=== PATIENT | male | born 1980 | race Two or more races ===

== ENCOUNTER 2024-08-15 09:09 | Emergency (ER) | payer MEDICARE, MEDICAID, SELFPAY ==
[2024-08-15] VITALS (7 sets, daily range): BP systolic 93–137; BP diastolic 62–85; PULSE 83–135; RESP 12–17; TEMP 36.9–37; O2SAT 97–99; BMI 22.1
--- NOTE | 2024-08-15 09:42 | EKG_ITS ---
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
--- NOTE | 2024-08-15 09:42 | PD.EDRME ---
Rapid Medical Screening Exam RME Arrival date/time: 08/15/24 09:09 43-year-old male with a history of A-fib, type 1 diabetes, presents to the emergency room with a chief complaint of palpitations x 1 day. Patient states he has a history of A-fib but does not take any blood thinners as he is trying to treat it naturally. I have greeted and performed a focused initial assessment of this patient. A comprehensive ED assessment and evaluation of the patient, analysis of all test results, and completion of the medical decision making process will be conducted by additional ED providers. Chief Complaint: Arrhythmia/Palpitations Vital signs reviewed by provider: Yes
[2024-08-15] MEDS: DILTIAZEM 30 MG TABLET 60 MG PO (10:17)
--- NOTE | 2024-08-15 10:37 | EDNOTE_ITS ---
ED Arrhythmia Palp. RME/HPI General Chief Complaint: Arrhythmia/Palpitations Stated Complaint: Heart palpitations Time Seen by Provider: 08/15/24 10:07 Arrival date/time: 08/15/24 09:09 RME / HPI RME / HPI narrative: 08/15/24 09:09 43-year-old male with a history of A-fib, type 1 diabetes, presents to the emergency room with a chief complaint of palpitations x 1 day. Patient states he has a history of A-fib but does not take any blood thinners as he is trying to treat it naturally. I have greeted and performed a focused initial assessment of this patient. A comprehensive ED assessment and evaluation of the patient, analysis of all test results, and completion of the medical decision making process will be conducted by additional ED providers. DR. MACEDO MAIN ED EVALUATION: 43 year old male with past medical history significant for diabetes, dyslipidemia, hypertension and paroxysmal atrial fibrillation presents to the Emergency Department with complaint of palpitations today. Symptoms are moderat e. Patient denies any blood thinners, states he wants to treat atrial fibrillation naturally. No other symptoms reported at this time. Related Data Previous Rx's ?Medication ?Instructions ?Recorded apixaban 5 mg tablet (Eliquis) 5 mg PO BID #60 tabs blood sugar diagnostic (Blood #100 ea 08/22/19 Glucose Test strips) blood-glucose meter (Blood Glucose #1 ea 08/22/19 Monitoring kit) diltiazem HCl 120 mg 120 mg PO QDAY #30 caps 08/12 0 capsule,extended release 24 hr insulin degludec 100 unit/mL (3 10 unit (0.1 mL) subcu t QDAY #15 mL 08/22/19 mL) subcutaneous pen lancets 30 gauge (BD Ultra-Fine II #100 ea 08/22/19 Lancets) metformin 1,000 mg 24 hr 1,000 mg PO QPM #30 tabs 03/02 tablet,extended release (gastric reten.) pen needle, diabetic 29 gauge x #30 ea 08/22/19 1/2 (Lite Touch Insulin Pen [place]) Allergies Allergy/AdvReac Type Severity Reaction Status Date / Time No Known Allergies Allergy Verified 08/15/24 09:12 Review of Systems Review of Systems Systems Reviewed: All systems reviewed, normal except as documented Past Medical History Past Medical History CARDIAC: Positive Cardiac Disorders, Cardiac Arrhythmia, Atrial Fibrillation, Hypercholesterolemia and Hypertension RESPIRATORY: Positive Bronchitis ENDOCRINE: Positive Endocrine Disorders and Diabetes Mellitus Type 2 Family History FAMILY HISTORY: Positive Family Cancer Social History SMOKING STATUS: Never smoker SECOND HAND EXPOSURE: No SUBSTANCE USE: does not use ALCOHOL: Never ED Exam Narrative Physical exam: GENERAL APPEARANCE: AxOx4, generally well-appearing, no acute distress. HEENT: NC, AT. MMM. EOMI, clear conjunctiva, oropharynx clear. NECK: Supple without lymphadenopathy. No stiffness or restricted ROM. HEART: Normal rate and regular rhythm, normal S1/S1, no m/r/g LUNGS: CTAB, moving air well. No crackles or wheezes are heard. ABDOMEN: Soft, nontender, nondistended with good bowel sounds heard. BACK: No midline C/T/L spine pain or deformity, No CVAT, no obvious deformity. EXTREMITIES: Without cyanosis, clubbing or edema. MUSCULOSKELETAL: FROM of all major joints, no chest tenderness NEUROLOGICAL: Grossly nonfocal. Alert and oriented, moving all 4 extremities. CN not formally tested but appear grossly intact. Observed to ambulate with normal gait. Skin: Warm and dry without any rash. Course Quality Measures none Orders Category Date Time Status EKG (ED ONLY) *Do not use* NOW Care 08/15/24 09:42 Completed EKG (ED Only) Stat Exams 08/15/24 09:42 Draft CMP [Comprehensive Metabolic Panel] Stat Lab 08/15/24 10:08 Received Magnesium Stat Lab 08/15/24 10:08 Received Diltiazem [Cardizem] Med 08/15/24 10:13 Discontinued 60 mg PO X1 ONE Reevaluation(s) Reevaluation #1: Patient remains clinically stable throughout the emergency department visit. Re- assessment at the time of disposition demonstrates that the patient is in no acute distress. We reviewed all the results, analysis, and treatment plans. Patient is amenable to discharge. Strict return precautions were outlined. Patient was discharged in stable condition. Time: 14:28 Vital Signs Vital signs: Vital Signs Temperature 98.5 F 08/15/24 09:43 Pulse Rate 108 H 08/15/24 09:43 Respiratory Rate 16 08/15/24 09:43 Blood Pressure 137/68 H 08/15/24 09:43 Pulse Oximetry (%) 97 08/15/24 09:43 Oxygen Delivery Method Room Air 08/15/24 09:43 Procedures -ED EKG Interpretation #1: Date of EK08/15/24 Time of EK:48 Rate: 153 Interpretation: Interpreted by me Additional EKG comment: atrial fibrillation RVR, rate 153, no acute ST-T wave changes #2: Date of EK08/15/24 Time of EK:29 Rate: 81 Interpretation: Interpreted by me Additional EKG comment: sinus rhythm, rate 81, normal intervals, normal axis, no acute ST-T wave changes. Arrhythmia/Palpitations MDM Narrative MDM Narrative:: I, Viridiana Calvert, am scribing for and in the presence of Dr. Macedo. Patient is noncompliant with his medications. Here, his blood glucose was 450 and patient seems dehydrated. Will give 2L fluids and reevaluate, his atrial fibrillation should be better. Patient data External records reviewed:: [facility] previous records (Reviewed last ED visit dated 03/15/23, discharged with the following: Atrial fibrillation with rapid ventricular response) Clinical information provided by:: patient Social determinants that could affect healthcare access:: none Patient has the following chronic illnesses:: diabetes, dyslipidemia, hypertension and paroxysmal atrial fibrillation How is presenting disease/condition affected by chronic disease/condition?: exacerbated by Evaluation data The following diagnostics were reviewed and interpreted by me:: lab results and EKG tracing(s) Lab and/or radiology exams considered but not ordered:: none Interpretation Summary: See above under MDM narrative. Medications / Prescriptions Medications or Prescriptions considered but not ordered:: none Medication administrations:: Medication Administration History Discontinued Medications Diltiazem HCl (Diltiazem 30 Mg Tablet) 60 mg PO X1 ONE Stop: 08/15/24 10:14 Last Admin: 08/15/24 10:17 Dose: 60 mg Documented By: TM Consultations Consultation(s) initiated? (list below): No Diagnosis Differential diagnosis arrhythmia/palpitations: palpitations, anxiety, artial fibrillation, artial flutter and supraventricular tachycardia Most likely diagnosis given after review of the tests above:: Hyperglycemia without ketosis Atrial fibrillation Admission Indicated Admission indicated?: not indicated Admission Request Was there a request for admission?: No Disposition Plan Disposition Plan: Discharge Discharge Attestation Discharge Attestation: The patient and all family members were given an opportunity to ask questions and understood the discharge instructions. Discharge instructions specifically effects, indications for sooner follow up or return to the emergency department, and the expected course of current diagnosis. Patient condition: Stable Discharge Plan Plan Patient Disposition: HOME (Self Care) Prescriptions/Referrals Prescriptions/Med Rec: No Action Eliquis 5 mg tablet 5 mg PO BID Qty: 60 0RF metformin 1,000 mg tablet,ER thomas.retention 24 hr 1,000 mg PO QPM Qty: 30 0RF diltiazem HCl 120 mg capsule,extended release 24hr 120 mg PO QDAY Qty: 30 0RF insulin degludec 100 unit/mL (3 mL) insulin pen 10 unit SC QDAY Qty: 15 0RF (DME) blood-glucose meter [Blood Glucose Monitoring] kit See Dose Instructions .ROUTE .MEDSUPPLY Qty: 1 0RF Dose Instruction: As directed Rx Instructions: As directed check blood sugar 3 times a day (DME) blood sugar diagnostic [Blood Glucose Test] strip See Dose Instructions .ROUTE .MEDSUPPLY Qty: 100 0RF Dose Instruction: As directed Rx Instructions: As directed check blood sugar 3 times a day (DME) lancets [BD Ultra-Fine II Lancets] 30 gauge misc See Dose Instructions .ROUTE .MEDSUPPLY Qty: 100 0RF Dose Instruction: As directed Rx Instructions: As directed check blood sugar 3 times a day (DME) pen needle, diabetic [Lite Touch Insulin Pen [place]] 29 gauge x 1/2 needle See Dose Instructions .ROUTE .MEDSUPPLY Qty: 30 0RF Dose Instruction: As directed Rx Instructions: As directed Referrals: Rohit Shepard MD [Primary Care Provider] - In 1 week Problem List Clinical Impression: Hyperglycemia without ketosis, Atrial fibrillation Patient/Caregiver Discharge Instructions Education Materials: ED Atrial Fibrillation, ED Diabetes with High Blood Sugar Additional Instructions: Follow-up with your emergency management system director, Dr. Bernal, in 1 to 2 days for recheck. You can return to the emergency department sooner symptoms worsen or if you notice any new, concerning issues Print Language: Cambodian Stand Alone Forms: Marisabel Award Info., Patient Portal Info Letter
[2024-08-15 10:59] LABS: Alanine Aminotransferase 22 U/L (10-49); Albumin, Serum 4.5 gm/dL (3.5-5.0); Albumin/Globulin Ratio 1.7 (1.2-2.2); Alkaline Phosphatase 84 U/L (46-116); Anion Gap 9 (7-16); Aspartate Amino Transferase 16 U/L (0-34); BUN/Creatinine Ratio 15 Ratio (12-20); Bilirubin,Total 1.3 mg/dL (0.3-1.2); Blood Urea Nitrogen 16 mg/dL (9-23); Calcium 9.4 mg/dL (8.3-10.6); Calcium (Corrected) 9.4 mg/dL (8.5-10.1); Carbon Dioxide 25.6 mMol/L (20.0-31.0); Chloride 99 mMol/L (98-107); Creatinine (Component) 1.1 mg/dL (0.6-1.3); Estimated Creatinine Clearance 82.8 mL/min (>60); Globulin 2.7 gm/dL (2.3-3.5); Magnesium 1.9 mg/dL (1.6-2.6); Osmolality,Calculated 287 (275-295); Potassium 4.4 mMol/L (3.4-5.1); Sodium 134 mMol/L (136-145); Total Protein 7.2 gm/dL (5.7-8.2); eGFR > 60 See Note
[2024-08-15 11:01] LABS: Glucose 424 mg/dL (74-106)
[2024-08-15] MEDS: SODIUM CHLORIDE 0.9% 1000 ML 1,000 ML 999 ML IV ×2 (11:21)
--- NOTE | 2024-08-15 14:22 | EKG_ITS ---
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
== END 2024-08-15 14:39 | disposition home or self-care (01) ==
PROVIDERS: Emergency Provider Emergency Medicine; PCP Family Medicine
DX: E11.65 Type 2 diabetes mellitus with hyperglycemia (principal); E78.5 Hyperlipidemia, unspecified; I48.0 Paroxysmal atrial fibrillation; I10 Essential (primary) hypertension
CPT/HCPCS: 36415; 80053; 80307; 81001; 83735; 83880; 84484; 85025; 85610; 85730; 93005; 96360; 99284; J7030; A9270